=== PATIENT | female | born 1965 | race Caucasian/White ===

== ENCOUNTER 2016-11-12 23:48 | Inpatient (IN) | payer OTHER ==
--- NOTE | ~2016-11-12 | CO ---
Unit #: [id number] #: [id number] Patient: JIMENA SCHMITT [id number] [place] [address] [id number] I MR#: [id number] NAME: JIMENA SCHMITT ROOM: [facility] Age: 51 Sex: F Admission Date: 11/12/2016 : 1965 Attending Physician: Sugey Cao M.D. Primary Care Physician: Primary Care Physician No Consultation Date: 11/13/2016 CONSULTATION REPORT SUBJECTIVE Jimena is a 51-year-old with type 2 diabetes. Home medications include 70/30 insulin. I spoke with the patient. She knows that we do not use 70/30 at this facility. She will be started on low dose of Levemir, 15 units subcu q.h.s. Continue to monitor Accu-Cheks a.c. and h.s. and dosing will be adjusted accordingly. She is also placed on our routine sliding scale. Dictated by... Luis Carlos Avila/dee TD: 11/15/2016 19:36 JOB #: [id number] CONSULTATION REPORT Page 1 of 1 X Elaine Augustin CONSULTATION REPORT
--- NOTE | ~2016-11-12 | DS ---
Unit #: [id number] #: [id number] Patient: LENORE SCHMITT [id number] [facility] [address] [place], [place] [id number] MR#: [id number] NAME: LENORE SCHMITT ROOM: [facility] Age: 51 Sex: F Admission Date: 11/12/2016 : 1965 Discharge Date: 11/24/2016 Attending Physician: Sugey Cao M.D. DISCHARGE SUMMARY IDENTIFYING DATA Ms. Schmitt is a 51-year-old single white female, who is a resident of [place], [place] and was transferred to us from [facility] in [place], [place] on a voluntary basis. DISCHARGE DIAGNOSES Psychiatric: Major depressive disorder, recurrent, moderate, with psychosis; generalized anxiety disorder. Medical: Diabetes mellitus. Stressors: Moderate psychosocial stressors. HISTORY OF PRESENT ILLNESS Please see initial psychiatric evaluation for details. PAST PSYCHIATRIC HISTORY Please see initial psychiatric evaluation for details. PAST MEDICAL HISTORY Please see initial psychiatric evaluation for details. HOSPITAL COURSE The patient was admitted to the adult psychiatric unit at [facility] and was oriented to the hospital environment. Routine p.r.n. medications were initiated, and she was started back on her home medication. However, initially, she presented with depression, but since the very first day, she was seen to be exhibiting acute psychosis and will inventory audit clerk the middle of the hallway and would not follow directions, would not interact or socialize very much, and then it was noted that she has been in significant thought blocking and poor personal hygiene as upon presentation, she has such a bad body odor that it was difficult for me to even get close to her and interact with her, and she was encouraged to take a shower and she would refuse to do that and would state that "I can't." Staff did try to encourage and help her however, but she would not follow recommendations. Medications were initiated and Risperdal was started along with Celexa, but the patient was refusing to take the medication, but would unable to elaborate as to why she is refusing to take the medication and then was also refusing to take her diabetes and will make deals with the staff as to how many units of insulin she is going to take, stating that she is not going to eat that much and therefore she does not need that much medication. Her personal hygiene was deteriorating and as such, the staff were constantly encouraging and I was encouraging her as the patient was constantly wanting to leave and was showing very poor insight into her situation and poor motivation towards treatment and was encouraged that if she starts taking medication and take Unit #: [id number] #: [id number] Patient: OSKAR,LENORE care of her personal hygiene, she would be able to go and she then started following up on those recommendations, which allowed us to help her stabilize to an extent that she could be discharged home. DISCHARGE MEDICATIONS Risperdal 1 mg b.i.d. for psychosis, Celexa 20 mg a day for depression, and Vistaril 50 mg b.i.d. for anxiety. DISCHARGE CONDITION Stable. PROGNOSIS Fair. Dictated by... Ramy Jones/dee TD: 11/24/2016 07:43 JOB #: [id number] DISCHARGE SUMMARY Page 1 of 1 X Sugey Cao MD X DISCHARGE SUMMARY
--- NOTE | ~2016-11-12 | PN ---
Unit #: [id number] #: [id number] Patient: LENORE SCHMITT [id number] [facility] [address] [place] [address] [id number] I MR#: [id number] NAME: LENORE SCHMITT ROOM: [facility] Age: 51 Sex: F Admission Date: 11/12/2016 : 1965 Attending Physician: Sugey Cao M.D. Admitting Physician: Sugey Cao M.D. Primary Care Physician: Primary Care Physician Paula STANFORD NOTES DATE 11/15/2016 DISCUSSION Ms. Schmitt is a 51-year-old white female with mood disorder and psychosis who was seen today and chart was reviewed and case was discussed with the staff who report patient remains disorganized and also has been extremely unkempt, disheveled with significant body odor and staff were at her door with towels and trying to help her take a shower. The patient has been reluctant and resistant to take a shower stating that she is scared of it and has not been able to elaborate the fear associated with that. However, she has such a bad body odor that she has been kept in a private room and we cannot even get close to her and breathe and not be able to talk to her and therefore we have to stand at the door and talk to her and yet she has been refusing to cooperate and participate in her personal hygiene. MENTAL STATUS EXAMINATION Middle-aged white female who was casually dressed with fair personal hygiene and appears to be in no acute distress or discomfort. She was awake and alert with impaired attention and concentration. Her mood was anxious with congruent affect. Her speech is slow and tangential. Her thought processes were disorganized with some looseness of association. Her insight and judgement remains significantly impaired. TREATMENT PLAN 1. Will continue on current medications and treatment protocol and will monitor her response to the medications and make further adjustments as needed. 2. Will continue to follow up. Dictated by... Ramy Jones/sherri TD: 11/16/2016 18:26 JOB #: [id number] Unit #: [id number] #: [id number] Patient: LENORE SCHMITT PROGRESS NOTES Page 1 of 1 X Sugey Cao MD NOTE
--- NOTE | ~2016-11-12 | PN ---
Unit #: [id number] #: [id number] Patient: LENORE SCHMITT [id number] [facility] [address] [place] [address] [id number] I MR#: [id number] NAME: LENORE SCHMITT ROOM: [facility] Age: 51 Sex: F Admission Date: 11/12/2016 : 1965 Attending Physician: Sugey Cao M.D. Admitting Physician: Sugey Cao M.D. Primary Care Physician: Primary Care Physician Paula STANFORD NOTES SUBJECTIVE This is a 51-year-old white female with mood disorder and psychosis, who was seen today and chart was reviewed, and case was discussed with the staff. She continues to exhibit bizarre behavior as she has been facing hallways, has been extremely unkempt, disheveled, such a bad body odor that it is difficult to even talk to her while standing next to her and she has been refused to take care of her personal hygiene, has been refusing to take a shower stating that she just cannot do it and has been extremely anxious, bizarre, disorganized, and constantly has been pushing and focusing on wanting to leave other than the treatment. MENTAL STATUS EXAMINATION Middle-aged white female who was casually dressed with poor personal hygiene, appears to be in no acute distress or discomfort. She was awake and alert with impaired attention and concentration. Her mood was anxious and depressed with a congruent affect. Speech is slow and tangential. Her thought process were disorganized with some looseness of associations, paranoid ideations, and delusional behavior. Her insight and judgment remain significantly impaired. TREATMENT PLAN 1. We will continue with the home medications and will monitor her response to medication and make further adjustments as needed. 2. We will continue to follow up. Dictated by... Ramy Jones/dee TD: 11/15/2016 02:12 JOB #: [id number] Unit #: [id number] #: [id number] Patient: LENORE SCHMITT PROGRESS NOTES Page 1 of 1 X Sugey Cao A MD X PROGRESS NOTE
--- NOTE | ~2016-11-12 | CO ---
Unit #: [id number] #: [id number] Patient: JIMENA SCHMITT [id number] [place] [address] [id number] I MR#: [id number] NAME: JIMENA SCHMITT ROOM: [facility] Age: 51 Sex: F Admission Date: 11/12/2016 : 1965 Attending Physician: Sugey Cao M.D. Primary Care Physician: Primary Care Physician No Consultation Date: 11/15/2016 CONSULTATION REPORT SUBJECTIVE Jimena is a 51-year-old who complained of urgency and frequency of urination and had an abnormal urinalysis on admission. She has had no recorded temperatures and has had no complaints of nausea or vomiting. OBJECTIVE GENERAL: Alert, well nourished, in no apparent distress. VITAL SIGNS: Blood pressure 120/70, heart rate 80, respirations 16, temperature 98.6. ABDOMEN: Soft, nontender. BACK: Negative CVA tenderness. DIAGNOSTIC STUDIES LABORATORY RESULTS: Admission urinalysis; 4+ bacteria, 100 to 200 wbc's. ASSESSMENT Urinary tract infection. PLAN Bactrim DS one p.o. b.i.d. x3 days. Dictated by... Elaine Augustin PDionneA.-Nikki. for Ramy Flores/dee TD: 11/17/2016 02:04 JOB #: [id number] CONSULTATION REPORT Page 1 of 1 X Elaine Augustin CONSULTATION REPORT
--- NOTE | ~2016-11-12 | PN ---
Unit #: [id number] #: [id number] Patient: LENORE SCHMITT [id number] [facility] [address] [place] [address] [id number] MR#: [id number] NAME: LENORE SCHMITT ROOM: [facility] Age: 51 Sex: F Admission Date: 11/12/2016 : 1965 Attending Physician: Sugey Cao M.D. Admitting Physician: Sugey Cao M.D. Primary Care Physician: Primary Care Physician Paula DANIEL PROGRESS NOTES DATE 11/20/2016 DISCUSSION Ms. Schmitt is a 51-year-old white female who was seen today and chart was reviewed and case was discussed with the staff. She has been anxious, withdrawn and rather seclusive to herself. Meanwhile, she has been cooperative with treatment recommendations as she has been taking the medications and tolerating them fairly well with no reported side effects. MENTAL STATUS EXAMINATION Middle-aged white female who was casually dressed with fair personal hygiene, appears to be in no acute distress or discomfort. She was awake and alert with impaired attention and concentration. Her mood was anxious with congruent affect. She denies any suicidal or homicidal ideations. Her thought processes were disorganized with some looseness of associations and paranoid ideation. Her insight and judgement remains significantly impaired. TREATMENT PLAN 1. We will continue her on her current medications and treatment protocol and we will encourage her to show a better compliance to treatment recommendation. 2. We will continue to follow up. Dictated by... Ramy Jones/alicia TD: 11/22/2016 00:45 JOB #: [id number] Unit #: [id number] #: [id number] Patient: LENORE SCHMITT PROGRESS NOTES Page 1 of 1 X Sugey Cao MD PROGRESS NOTE
--- NOTE | ~2016-11-12 | PN ---
Unit #: [id number] #: [id number] Patient: LENORE SCHMITT [id number] [facility] [address] [place] [address] [id number] I MR#: [id number] NAME: LENORE SCHMITT ROOM: [facility] Age: 51 Sex: F Admission Date: 11/12/2016 : 1965 Attending Physician: Sugey Cao M.D. Admitting Physician: Sugey Cao M.D. Primary Care Physician: Primary Care Physician Paula DANIEL PROGRESS NOTES DATE November 23, 2016 DISCUSSION Ms. Schmitt is a 51-year-old white female, who was seen today and chart was reviewed and the case was discussed with the staff. She appears to be doing better and has been following directions and has been able to change her clothes, put them in the laundry, and has paper gowns on. The patient also was seen to be taking medications more regularly, no agitation, or aggression, or hostility has been noted. MENTAL STATUS EXAMINATION Middle-aged white female, who was casually dressed with fair personal hygiene and appears to be in no acute distress or discomfort. The patient was awake and alert with impaired attention and concentration. Her mood was anxious with a congruent affect. The patient denies any suicidal or homicidal ideations. Her insight and judgment remain slightly impaired. TREATMENT PLAN We will continue her on her current medications and treatment protocol, and will monitor her response to the medications, and make further adjustments as needed. We may consider discharge planning tomorrow. Dictated by... Ramy Jones/isabel TD: 11/24/2016 05:25 JOB #: [id number] Unit #: [id number] #: [id number] Patient: LENORE SCHMITT PROGRESS NOTES Page 1 of 1 X Sugey Cao MD PROGRESS NOTE
--- NOTE | ~2016-11-12 | PN ---
Unit #: [id number] #: [id number] Patient: LENORE SCHMITT [id number] [facility] [address] [place] [address] [id number] I MR#: [id number] NAME: LENORE SCHMITT ROOM: [facility] Age: 51 Sex: F Admission Date: 11/12/2016 : 1965 Attending Physician: Sugey Cao M.D. Admitting Physician: Sugey Cao M.D. Primary Care Physician: Primary Care Physician Paula STANFORD NOTES DATE November 18, 2016 DISCUSSION Ms. Schmitt is a 51-year-old white female, with mood disorder and psychosis, who was seen today and chart was reviewed and the case was discussed with the staff. She remains disorganized and unable to go to therapy groups and has not been able to participate very much and has poor personal hygiene and blunted affect, minimal interaction and has been unable to carry on any meaningful conversation and asked if she could go home and she has been refusing to take her medications even her diabetic medications and refusing to take care of her personal hygiene. MENTAL STATUS EXAMINATION Middle-aged white female, who was casually dressed with marginal personal hygiene and appears to be in no acute distress or discomfort. The patient was awake and alert with impaired attention and concentration. Her mood was anxious with a congruent affect. Her speech is slow and restricted in content. Her thought processes are disorganized with some looseness of associations and thought blocking and paranoid ideations. Her insight and judgment remain significantly impaired. TREATMENT PLAN 1. We will continue her on her current medications and treatment protocol, and will monitor her response to the medications, and make further adjustments as needed. 2. We will continue to followup. Dictated by... Ramy Jones/isabel TD: 11/21/2016 11:43 JOB #: [id number] Unit #: [id number] #: [id number] Patient: LENORE SCHMITT PROGRESS NOTES Page 1 of 1 X Sugey Cao MD PROGRESS NOTE
--- NOTE | ~2016-11-12 | PN ---
Unit #: [id number] #: [id number] Patient: LENORE SCHMITT [id number] [facility] [address] [place] [address] [id number] I MR#: [id number] NAME: LENORE SCHMITT ROOM: [facility] Age: 51 Sex: F Admission Date: 11/12/2016 : 1965 Attending Physician: Sugey Cao M.D. Admitting Physician: Sugey Cao M.D. Primary Care Physician: Primary Care Physician Paula STANFORD NOTES DATE 11/22/2016 DISCUSSION Ms. Schmitt is a 51-year-old white female who was seen today and chart was reviewed and case was discussed with the staff who report patient remains anxious, irritable, disorganized and refusing to comply with the treatment recommendations including her medication management as well as personal hygiene. However, she has not shown any agitation or aggression. MENTAL STATUS EXAMINATION Middle-aged white female who was casually dressed with marginal personal hygiene and appears to be in no acute distress or discomfort. She was awake and alert with impaired attention and concentration. Her mood was anxious with congruent affect. Her speech is slow and restricted in content. Thought processes were disorganized with some looseness of associations. Her insight and judgement remains significantly impaired. TREATMENT PLAN 1. Will continue on current medications and treatment protocol. Will monitor her response to the medications and make further adjustments as needed. 2. Will continue to follow up. Dictated by... Sugey Cao M.D. IAA/sherri TD: 11/22/2016 22:50 JOB #: [id number] Unit #: [id number] #: [id number] Patient: LENORE SCHMITT PROGRESS NOTES Page 1 of 1 X Sugey Cao MD PROGRESS NOTE
--- NOTE | ~2016-11-12 | PN ---
Unit #: [id number] #: [id number] Patient: LENORE SCHMITT [id number] [facility] [address] [place] [address] [id number] I MR#: [id number] NAME: LENORE SCHMITT ROOM: [facility] Age: 51 Sex: F Admission Date: 11/12/2016 : 1965 Attending Physician: Sugey Cao M.D. Admitting Physician: Ramy Jones PROGRESS NOTES DATE OF SERVICE: 11/19/2016 SUBJECTIVE Ms. Schmitt is a 51-year-old white female, who was seen today and chart was reviewed and the case was discussed with the staff. She has been anxious and withdrawn, though has not shown any agitation, irritability, or behavioral problems and has been cooperative with the treatment recommendations as she has been taking the medications and tolerating them fairly well. MENTAL STATUS EXAMINATION Middle-aged white female, who was casually dressed with marginal personal hygiene, appears to be in no acute distress or discomfort. She was awake and alert with impaired attention and concentration. Her mood was anxious with a congruent affect. She denies any suicidal or homicidal ideation. Her insight and judgment remain significantly impaired. TREATMENT PLAN 1. We will continue her on her current medications and treatment protocol and we will monitor her response to the medications and make further adjustments as needed. 2. We will continue to follow up. Dictated by... Ramy Jones/dee TD: 11/20/2016 14:13 JOB #: [id number] FREDY STANFORD NOTES Page 1 of 1 X Sugey Cao MD PROGRESS NOTE
--- NOTE | ~2016-11-12 | A ---
[facility] Nutrition Therapy DATE: 11/22/16 Patient: LENORE SCHMITT Physician: AFAIRF Address: [address] [place] [address] Room/Bed: [address], Zip: [place] [address] Admit Date: 11/12/16 Date of : [birth year] Height: 5 5.74 Weight: 138 63 NUTRITIONAL ASSESSMENT: REASON: LENGTH OF STAY PATIENT ADMITTED FOR DEPRESSION AND PARANOIA PMH: DM, HYPOTHYROIDISM Anthropometrics: HT: 5'5", WT: 138#, BMI: 23 Labs: NO LABS AVAILABLE (PATIENT REFUSAL) Meds: CELEXA, RISPERDAL, VISTARIL, SYNTHROID Assessment: PATIENT IS A 51 Y/O FEMALE ADMITTED FOR DERESSION AND PARANOIA. PATIENT IS CURRENTLY UNEMPLOYED, HAS STABLE HOUSING, AND DENIES SUBSTANCE ABUSE. PER NEEDS ASSESSMENT, PATIENT STATED A POOR APPETITE WITH NO WEIGHT CHANGES. NURSING REPORTS FAIR PO INTAKES. IT IS NOTED THAT PATIENT WAS NON-COMPLIANT WITH MEDICATIONS PRIOR TO ADMIT AND SHE HAS A HX OF INPATIENT PSYCH TREATMENT. SHE CONTINUE TO REFUSE MOST MEDICATIONS INCLUDING HER PSYCH AND DIABETIC MEDICATIONS. PATIENT WAS POSTIVE FOR A UTI UPON ADMIT. PATIENT CONTINUES EXHIBITING BIZARRE BEHAVIORS, SHE HAS POOR COMPLIANCE WITH TREATMENT RECOMMENDATIONS, AND SHE HAS EXTREMELY POOR PERSONAL HYGIENE. SHE HAS REFUSED TO SHOWER OR CHANGE CLOTHES SINCE ADMIT (10 DAYS AGO). PATIENT IS ON A CC DIET. THERE ARE NO SKIN OR GI ISSUES NOTED ATT. Dx: ALTERED NUTRIENT NEEDS R/T CURRENT CONDITION, DX AEB NEED FOR THERAPEUTIC DIET Intervention: 1. CC DIET, 2. MEDS PER MD, 3. PSYCH Monitoring, Evaluation and Goals: 1. ADEQUATE PO INTAKES >50% OF MEALS 2. PREVENT, CORRECT MICRO/MACRO NUTRIENT DEFINCIENCIES MONITOR: WEIGHTS, LABS, PO/FLUID INTAKES Recommendations: 1. CONTINUE CC DIET TOLERATED. 2. ENCOURAGE ADEQUATE PO AND FLUID INTAKES 3. OBTAIN WEIGHTS ROUTINELY (EVERY 3-4 DAYS) 4. IF PO INTAKES FALL BELOW 50% OF MEALS CONSISTENTLY PLEASE ORDER GLUCERNA BID TO PROMOTE ADEQUATE KCAL AND PROTEIN INTAKES [facility] Nutrition Therapy DATE: 11/22/16 Patient: LENORE OSKAR Physician: AFAIRF Address: [address] [place] [address] Room/Bed: [address], Zip: [place] [address] Admit Date: 11/12/16 Date of : [birth year] Height: 5 5.74 Weight: 138 63 5. IF PATIENT WILLING, OBTAIN A BMP TO ASSESS NUTRITIONAL STATUS RD TO F/U PER PROTOCOL AND PRN R/T PATIENT MILDLY COMPROMISED Respectfully, DEVIN STARR, RD, LD [facility] Nutrition[facility] cc: client file
--- NOTE | ~2016-11-12 | PA ---
Unit #: [id number] #: [id number] Patient: LENORE SCHMITT [id number] [facility] [address] [place] [address] [id number] MR#: [id number] NAME: LENORE SCHMITT ROOM: [facility] Age: 51 Sex: F Admission Date: 11/12/2016 : 1965 Date of Assessment: 11/13/2016 Attending Physician: Sugey Cao M.D. Admitting Physician: Sugey Cao M.D. Primary Care Physician: Primary Care Physician No PSYCHIATRIC ASSESSMENT DATE OF SERVICE 11/13/2016. IDENTIFYING DATA Ms. Schmitt is a 51-year-old single white female who is a resident of [place], [place] and was transferred to us from [facility] in [place], [place] on a voluntary basis. CHIEF COMPLAINT "I have been thinking about calling emergency services several days due to feeling like I'm going to cut my face." HISTORY OF PRESENT ILLNESS Ms. Schmitt is a 51-year-old white female who was transferred to us from [facility] in [place], [place], where she presented stating that for the past few days, she has been unable to leave her home due to high level of depression and that she has been thinking about calling emergency services several days due to feeling like she is going to cut her face, though stated that she knows she will not. She reports that she is not taking mental health medication. She is unable to remember the names of the medication and reports that she is feeling very hopeless and does not feel that she will ever be normal again and reports that she has also not showered or completed other tasks in the last 2 weeks. 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 She does endorse significant depression, anxiety, restlessness, psychomotor retardation, feelings of hopelessness and helplessness, and suicidal ideations with intent and plan. SUBSTANCE ABUSE HISTORY The patient reports history of alcohol abuse, but denies any current substance abuse issues. PAST PSYCHIATRIC HISTORY The patient has had history of inpatient psychiatric hospitalizations twice at [facility], and has been diagnosed and treated for mood disorder on the lines of depression and anxiety, but currently she is not active in any treatment program, is not seeing a psychiatrist, and not taking any psychotropic medications. Unit #: [id number] #: [id number] Patient: LENORE SCHMITT PAST MEDICAL HISTORY Diabetes mellitus. ALLERGIES No known medication allergies. PERSONAL AND SOCIAL HISTORY A 51-year-old white female who reports that she lives at home with her boyfriend and has poor social support system. MENTAL STATUS EXAMINATION Middle-aged white female who was casually dressed with fair personal hygiene, appears to be in no acute distress or discomfort. She was awake and alert on interaction with intact orientation to time, place, and person. Her mood was anxious and depressed with a congruent affect. Her speech was slow and restricted in content. Her thought processes were disorganized with some looseness of associations and flight of ideas and suicidal ideations. Her insight and judgment remain significantly impaired. DIAGNOSTIC IMPRESSION Psychiatric: Major depressive disorder, recurrent, moderate, without psychotic features; generalized anxiety disorder. Medical: Diabetes mellitus. Stressors: Moderate psychosocial stressors. TREATMENT PLAN 1. The patient has presented with history of mood disorder and has been decompensating and will need inpatient hospitalization for safety and stabilization. We will start her back on her home medications. We will adjust the medications and monitor response. 2. Supportive therapy was provided to the patient. 3. Safe, structured, and nourishing environment will be provided. ESTIMATED LENGTH OF STAY 4 to 5 days. ABILITY TO HELP SELF Limited. WILLINGNESS TO HELP SELF The patient appears to be willing to help self. STRENGTHS 1. Communicative. 2. Cooperative. PROBLEMS 1. Chronic dysphoric symptoms. 2. Poor social support system. DISCHARGE CRITERIA This will be contingent upon the patient's ability to show resolution of her depression and anxiety as well as her ability to stay safe to herself, particularly after discharge from the hospital. Dictated by... Unit #: [id number] #: [id number] Patient: LENORE SCHMITT Ramy Jones/dee TD: 11/13/2016 14:47 JOB #: [id number] PSYCHIATRIC ASSESSMENT Page 1 of 1 X Sugey Cao MD PSYCHIATRIC ASSESSMENT
--- NOTE | ~2016-11-12 | PN ---
Unit #: [id number] #: [id number] Patient: LENORE SCHMITT [id number] [facility] [address] [place] [address] [id number] MR#: [id number] NAME: LENORE SCHMITT ROOM: [facility] Age: 51 Sex: F Admission Date: 11/12/2016 : 1965 Attending Physician: Sugey Cao M.D. Admitting Physician: Sugey Cao M.D. Primary Care Physician: Primary Care Physician Paula STANFORD NOTES DATE 11/17/2016 DISCUSSION Ms. Schmitt is a 51-year-old white female who was seen today and chart was reviewed and case was discussed with the staff who reports the patient has been restless, anxious and confused, disorganized and has been refusing all treatment including her medications even diabetic medications and then has been pacing the hallways and has been unkept, disheveled, refusing not taking care of her personal hygiene and constantly wanting to leave the hospital and yet she is not showing any cooperation with treatment recommendations. MENTAL STATUS EXAMINATION Middle-aged white female who was casually dressed with fair personal hygiene, appears to be in no acute distress or discomfort. The patient was awake and alert with impaired attention and concentration. Her mood was anxious with congruent affect. Her speech was slow and restricted in content. Her thought processes were disorganized with some looseness of associations. Her insight and judgement remains significantly impaired. TREATMENT PLAN 1. We will continue her on her current medications and treatment protocol. We will monitor her response to the medication and make further adjustments as needed. 2. We will continue to follow up. Dictated by... Ramy Jones/alicia TD: 11/21/2016 02:58 JOB #: [id number] Unit #: [id number] #: [id number] Patient: LENORE SCHMITT PROGRESS NOTES Page 1 of 1 X Sugey Cao MD PROGRESS NOTE
--- NOTE | ~2016-11-12 | HP ---
Unit #: [id number] #: [id number] Patient: JIMENA SCHMITT [id number] [place] [address] [id number] MR#: [id number] NAME: JIMENA SCHMITT ROOM: [facility] Age: 51 Sex: F Admission Date: 11/12/2016 : 1965 Attending Physician: Sugey Cao M.D. Admitting Physician: Sugey Cao M.D. Primary Care Physician: Primary Care Physician No HISTORY AND PHYSICAL HISTORY OF PRESENT ILLNESS Jimena is a 51 year old admitted to [address] [place] [address] with depression and paranoia. PAST MEDICAL HISTORY 1. Diabetes mellitus 2. Hypothyroidism PAST SURGICAL HISTORY Nothing reported. ALLERGIES No known drug allergies. SOCIAL HISTORY She denies cigarettes, alcohol and illicit drug use. FAMILY HISTORY Medically noncontributory. REVIEW OF SYSTEMS CONSTITUTIONAL: No fever or chills. HEENT: Denies any sore throat, ear pain or runny nose. CARDIOVASCULAR: Denies chest pain, irregular heart rhythm or palpitations. CHEST: Denies shortness of breath or cough. No hemoptysis. GASTROINTESTINAL: Denies nausea, vomiting, diarrhea or chronic constipation. ENDOCRINE: Denies history of increased thirst or urination. No recent significant weight loss or gain. GENITOURINARY: Denies dysuria, frequency, or hematuria. SKIN: Denies any rashes. HEMATOLOGIC: Denies history of increased bleeding or bruising. MUSCULOSKELETAL: Denies any hot, swollen joints. No generalized muscle pain. NEUROLOGIC: Denies problems with vision or speech. No frequent, severe headaches. No numbness, tingling or weakness in any extremities. Denies loss of bladder or bowel control. CURRENT MEDICATIONS 1. Levemir 15 units q.h.s. 2. Risperdal 1 mg b.i.d. Unit #: [id number] #: [id number] Patient: JIMENA SCHMITT 3. Milk of Magnesia p.r.n. 4. Maalox p.r.n. 5. Tylenol p.r.n. 6. NovoLog per scale 7. Vistaril 50 mg b.i.d. 8. Synthroid 0.125 mg daily PHYSICAL EXAMINATION GENERAL: Alert, well-nourished, in no apparent distress. VITAL SIGNS: Blood pressure 100/52, heart rate 80, respirations 16, temperature 98.6. WEIGHT: 138 pounds. HEIGHT: 5'5". SKIN: Warm and dry without rash or lesion. HEENT: Normocephalic. TMs not viewed. Oral and nasal passages clear. Conjunctivae clear. Pupils equal, round and reactive to light and accommodation. Extraocular movements intact. NECK: Supple without lymphadenopathy or thyromegaly. HEART: Regular rate and rhythm without murmur. LUNGS: Clear. ABDOMEN: Soft, nontender. : Not done. EXTREMITIES: No evidence of cyanosis, clubbing or edema. Moves all extremities without focal deficit. NEUROLOGICAL: Grossly within normal limits. Cranial Nerves: II: Visual wheat are intact. III, IV AND : Extraocular movements are intact. Pupils are equal, round and reactive to light. V: Facial sensation is grossly normal. VII: Facial movements and expression are normal. VIII: Auditory acuity grossly intact. IX, X: Uvula is midline. Phonation is normal. XI: Patient shrugs shoulders and turns head normally. XII: Tongue protrudes in the midline. Sensory and Motor Function: Sensory and motor sensation is grossly normal. Motor: moves all extremities well. Coordination: Gait is normal. Deep Tendon Reflexes: Intact. IMPRESSION Psychiatric admission. RECOMMENDATIONS PSYCHIATRIC: Per psychiatrist. MEDICAL: I see no contraindications to participating in facility's activities. MEDICAL PROGNOSIS Good. MEDICAL CONDITION Stable. Dictated by... Elaine Augustin P.A.-C. for Ramy Flores Unit #: [id number] #: [id number] Patient: JIMENA SCHMITT TD: 11/13/2016 22:03 JOB #: [id number] HISTORY AND PHYSICAL Page 1 of 1 X Elaine Augustin HISTORY AND PHYSICAL
--- NOTE | ~2016-11-12 | PN ---
Unit #: [id number] #: [id number] Patient: LENORE SCHMITT [id number] [facility] [address] [place] [address] [id number] I MR#: [id number] NAME: LENORE SCHMITT ROOM: [facility] Age: 51 Sex: F Admission Date: 11/12/2016 : 1965 Attending Physician: Sugey Cao M.D. Admitting Physician: Sugey Cao M.D. Primary Care Physician: Primary Care Physician Paula STANFORD NOTES DATE 11/16/2016 DISCUSSION Ms. Schmitt is a 51-year-old white female with mood disorder and psychosis who was seen today and chart was reviewed and case was discussed with the staff. She remains acutely psychotic with bizarre behavior and looseness of association and once again has been difficult to be redirected and has not been taking care of her personal hygiene and has been refusing to take her medications that she has been unable to (1) and she has been very bizarre and has not been able to carry on meaningful conversation with or to be reasoned with just keep on stating that she wants to get out of here but then she has been refusing to cooperate with treatment recommendations. MENTAL STATUS EXAMINATION Middle-aged white female who was casually dressed with fair personal hygiene, appears to be in no acute distress or discomfort. She was awake and alert with impaired attention and concentration. Her mood was anxious with congruent affect. She denies any suicidal or homicidal ideation. Her thought process was disorganized with some looseness of associations. Her insight and judgement remains significantly impaired. TREATMENT PLAN 1. We will continue her on her current medications and treatment protocol. We will encourage the patient to show better compliance to the medications and treatment recommendations. 2. We will continue to follow up. Dictated by... Ramy Jones/alicia TD: 11/20/2016 04:23 JOB #: [id number] Unit #: [id number] #: [id number] Patient: LENORE SCHMITT PROGRESS NOTES Page 1 of 1 X Kiley,Sugey Retana MD X PROGRESS NOTE
--- NOTE | ~2016-11-12 | PN ---
Unit #: [id number] #: [id number] Patient: LENORE SCHMITT [id number] [facility] [address] [place] [address] [id number] I MR#: [id number] NAME: LENORE SCHMITT ROOM: [facility] Age: 51 Sex: F Admission Date: 11/12/2016 : 1965 Attending Physician: Sugey Cao M.D. Admitting Physician: Sugey Cao M.D. Primary Care Physician: Primary Care Physician Paula DANIEL PROGRESS NOTES DATE OF SERVICE: 11/21/2016 SUBJECTIVE Ms. Schmitt is a 51-year-old white female who was seen today and chart was reviewed, and case was discussed with the staff. She has been anxious, withdrawn, and rather seclusive to herself. Staff reports she continues to show poor compliance, treatment recommendations including her medications and initially she was refusing to take her insulin and she stopped taking insulin, but picks and chooses to how many units she is going to take and has been having consistently stating that she is not going to eat that good and therefore, she just need few units, although then has still been refusing psychiatric medications. She also has been showing poor personal hygiene and refusing to change clothes, take a shower, and has had the same outfits ever since she has been here. She has been here for almost 9 days and she still has not changed her clothes. MENTAL STATUS EXAMINATION Middle-aged white female who was casually dressed with fair personal hygiene, appears to be in no acute distress or discomfort. She was awake and alert with impaired attention and concentration. Her mood was anxious with a congruent affect. Her speech was slow and restricted in content. Her thought processes were disorganized with some looseness of association with paranoid ideations. Her insight and judgment remain significantly impaired. TREATMENT PLAN 1. We will continue on her current medications and treatment protocol. We will monitor her response to medications and make further adjustments as needed. We will continue to encourage her to show better compliance with treatment recommendations. 2. We will continue to follow up. Dictated by... Ramy Jones/dee TD: 11/21/2016 10:53 JOB #: [id number] Unit #: [id number] #: [id number] Patient: LENORE SCHMITTGERARDO PROGRESS NOTES Page 1 of 1 X Sugey Cao MD X PROGRESS NOTE
[2016-11-13 12:24] LABS: URINE APPEARANCE CLOUDY; URINE BILIRUBIN NEG (NEG); URINE BLOOD TRACE (NEG); URINE COLOR YELLOW; URINE GLUCOSE >1000 MG/DL (NEG); URINE KETONE 3+ (NEG); URINE LEUKOCYTE ESTERASE 2+ (NEG); URINE NITRATE NEG (NEG); URINE PH 5.5 (5-8); URINE PROTEIN NEG (NEG); URINE SPECIFIC GRAVITY 1.024 (1.003-1.035); URINE UROBILINOGEN 0.2 MG/DL (NEG)
[2016-11-13 12:26] LABS: URINE BACTERIA AUWI 4+ (NEGATIVE); URINE SQUAMOUS EPITHELIAL CELL FEW /[HPF]; UWBCS1 AUWI 100-200 (0-5)
[2016-11-13 12:53] LABS: AMPHETAMINE NEG (NEG); BARBITURATES NEG (NEG); BENZODIAZEPINES NEG (NEG); COCAINE NEG (NEG); MARIJUANA NEG (NEG); OPIATES NEG (NEG); TRICYCLIC ANTIDEPRESSANTS NEG (NEG); U METHADONE NEG (NEG)
== END 2016-11-24 12:15 | disposition home or self-care (01) | DRG 885 ==
LOC: P1E 23:48 → P2L 11-13 15:54
PROVIDERS: Psychiatry & Neurology Psychiatry
DX: F33.1 Major depressive disorder, recurrent, moderate (principal); E11.9 Type 2 diabetes mellitus without complications; N39.0 Urinary tract infection, site not specified; F41.1 Generalized anxiety disorder; E03.9 Hypothyroidism, unspecified
CPT/HCPCS: 80307; 81003; 82947